=== PATIENT | male | born 1990 | race Caucasian/White ===

== ENCOUNTER 2023-03-03 21:23 | Emergency (ER) | payer MEDICAID ==
[~2023-03-03] VITALS: Ht 167.6 cm; Wt 84.8 kg
[2023-03-03 21:29] VITALS: BP 114/73; PULSE 93; RESP 16; TEMP 98; O2SAT 98
[2023-03-03] MEDS ORDERED: ACET-10509 PO (23:03)
[2023-03-03 23:10] VITALS: BP 112/80; PULSE 79; RESP 14; TEMP 98; O2SAT 99
== END 2023-03-03 23:10 | disposition home or self-care (01) ==
LOC: MED 21:23
DX: S09.90XA Unspecified injury of head, initial encounter (principal); R42 Dizziness and giddiness; Z79.899 Other long term (current) drug therapy; W18.39XA Other fall on same level, initial encounter; Y92.89 Other specified places as the place of occurrence of the external cause; Y93.89 Activity, other specified; Y99.8 Other external cause status
CPT/HCPCS: 99282